=== PATIENT | female | born 1985 | race Caucasian/White ===

== ENCOUNTER 2016-12-19 17:41 | Emergency (ER) | payer OTHER ==
[~2016-12-19] VITALS: Ht 152.4 cm; Wt 59.6 kg
[~2016-12-19 17:41] MED LIST: COMBIVIR1 TABLET PO; IBUPROFEN600 MG; NO HOME MEDS; NOHOMEMEDS; PROMETHAZINE12.5 M1; [UNRECOGNIZED DRUG - REMARK]; [UNRECOGNIZED DRUG - REMARK]
[2016-12-19 18:21] LABS: HEMATOCRIT 45.1 % (36.0-46.0); MCHC 34.1 G/DL (30.0-36.0); MCV 93.8 FL (83-99); PLATELET COUNT 189 K/uL (156-360); RBC DIS.WIDTH-CV 11.4 % (11.8-14.6); RBC DIS.WIDTH-SD 39.4 % (39-53); RED BLOOD COUNT 4.81 M/uL (3.80-5.20); WHITE BLOOD COUNT 7.5 K/uL (4.1-10.2)
[2016-12-19 18:32] LABS: CHLORIDE 108 mEq/L (99-109); POTASSIUM 3.2 mEq/L (3.7-5.4); SODIUM 141 mEq/L (136-147)
[2016-12-19 18:34] LABS: GLUCOSE 96 mg/dL (70-99)
[2016-12-19 18:35] LABS: ANION GAP 10 MEQ/L (2-14)
[2016-12-19 18:38] LABS: GFR ESTIMATE (CALCULATED) > 59 mL/min/; UREA NITROGEN (BUN) 6 mg/dL (9-23)
[2016-12-19 18:46] LABS: QUANTITATIVE HCG < 4.0 MIU/ML
[2016-12-19 19:09] LABS: TOTAL BILIRUBIN 1.5 mg/dL (0.0-1.0)
[2016-12-19 19:10] LABS: ALKALINE PHOSPHATASE 86 IU/L (3-129)
[2016-12-19 19:13] LABS: DIRECT BILIRUBIN 0.4 mg/dL (0.0-0.3)
[2016-12-19 19:14] LABS: LIPASE 23 U/L (1.0-51.0)
[2016-12-20] MEDS ORDERED: PROTONIX20 MG PO (00:22)
[2016-12-20 01:06] VITALS: BP 117/81
== END 2016-12-20 01:11 | disposition left against medical advice (07) ==
LOC: EME 17:41
DX: K92.2 Gastrointestinal hemorrhage, unspecified (principal); R10.31 Right lower quadrant pain; R10.11 Right upper quadrant pain; E87.6 Hypokalemia; Z21 Asymptomatic human immunodeficiency virus [HIV] infection status; I10 Essential (primary) hypertension; I25.2 Old myocardial infarction; Z91.040 Latex allergy status; Z88.1 Allergy status to other antibiotic agents; F17.200 Nicotine dependence, unspecified, uncomplicated
CPT/HCPCS: 80048; 80076; 83605; 83690; 84702; 85027; 86850; 86900; 86901; 87040; 99281; 99285; J7030